=== PATIENT | male | born 1995 | race Caucasian/White ===

== ENCOUNTER 2017-11-18 00:15 | Emergency (ER) | payer OTHER ==
[2017-11-18 00:22] VITALS: TEMP 98.6; O2SAT 95
[2017-11-18] MEDS ORDERED: LIDOCAINE/PRILOCAINE 1 EACH CRTUBE TP ONE (00:55)
[2017-11-18] MEDS ORDERED: LET GEL TOPICAL 1 EA SYR TP ONE ×2 (00:57→00:58)
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
[2017-11-18 02:04] VITALS: BP 124/76; PULSE 70; RESP 16
== END 2017-11-18 02:04 | disposition home or self-care (01) ==
DX: S61.411A Laceration without foreign body of right hand, initial encounter (principal); V47.6XXA Car passenger injured in collision with fixed or stationary object in traffic accident, initial encounter; Y92.410 Unspecified street and highway as the place of occurrence of the external cause; Y99.8 Other external cause status; Y93.89 Activity, other specified